=== PATIENT | female | born 1975 | race African-American/Black ===

== ENCOUNTER → 2020-09-06 | Outpatient (CLI) | payer OTHER ==
[~2020-09-06] MED LIST: ACET500T68 PO; ALBU2.5V8 IH; CYCL10TA2 PO; DOXY100T PO; FLUT1DIS IH; GABA600T7 PO; IOHEXOL 180 MG/ML 10 ML VIAL. ONE; PROP10TA PO; botox SUBCUT; methylPREDNISolone ACETATE 40 MG/ML VIAL. ONE; methylPREDNISolone ACETATE 80 MG/ML VIAL. ONE
--- NOTE | 2020-09-06 12:38 | PDOC1 ---
INITIAL PAIN CONSULT DATE OF SERVICE: DOS: DATE: 09/06/20 TIME: 12:31 CHIEF COMPLAINT: Chief Complaint: Low back and bilateral lower extremity pain left greater than right Neck shoulder and bilateral upper extremity pain HISTORY OF PRESENT ILLNESS: 45-year-old female presents history of pain for "many years" in the low back bilateral lower extremities as well as the shoulders upper back and neck and upper extremities. Patient reports no specific injury or accident that she is aware of recently but in 2002 she was carrying some heavy equipment as she was [employer] and fell off a vehicle which caused him significant pain especially in the back and the lower extremities as well as the neck. Patient describes the pain now in the low back and lower extremities is constant sharp stabbing throbbing shooting with tingling and numbness in the legs radiating into the legs and the arms at times as well as a burning quality the back is aching in the back as well. Patient reports it wakes her from sleep several times every night can affect her bowel bladder control but no loss of continence just increased urgency. Patient reports it does affect her ability to walk fairly significantly and is worse with walking and standing better with sitting or laying down again awaken her from sleep frequently. Patient is try gabapentin as well as cyclobenzaprine both of which do decrease the pain but only by about 20 to 30% patient has had previous chiropractic treatment and is still ongoing as these exercises she is doing on her own as well as previous physical therapy trigger point injection as well as epidural injections in the past which helped significantly as well. Did have MRI scan lumbar spine dated February 02, 2020 showing L4-5 broad annular bulging with facet arthropathy and li gamentum flavum buckling causing some narrowing mildly the central canal without crowding of the intrathecal nerve roots neuroforaminal slightly carotid without impingement of the exiting L4 nerve roots. Reports no loss of motor function but significant fatigability especially of the lower extremities with ambulation. PAST MEDICAL HISTORY: PMH: Arthritis, hypertension, dizziness PREVIOUS SURGERIES: Past Surgical Hx: D&C 1996, bladder sling 2013, left hip surgery for bursitis 2012 CURRENT MEDICATIONS: Current Meds: Active Scripts Medications Dose Route/Sig Max Daily Dose Days Date Category Acetaminophen 500 Mg Tablet 1,000 Mg PO PAIN 09/06/20 Reported [botox] SUBCUT 09/06/20 Reported Doxycycline Hyclate 100 Mg Tablet 100 Mg PO DAILY 1/29/21 Reported Advair 100-50 Diskus (Fluticasone/Salmeterol) 1 Each Disk.w.dev 1 Puff IH BID 09/06/20 Reported Proair Hfa Inhaler (Albuterol Sulfate) 8.5 Gm Hfa.aer.ad 2 Puff IH PRN Q4-6HRS PRN 21 09/06/20 Reported Cyclobenzaprine Hcl 10 Mg Tablet 1 Tab PO TID 09/06/20 Reported Gabapentin 600 Mg Tablet 600 Mg PO TID 09/06/20 Reported Propranolol Hcl 10 Mg Tablet 20 Mg PO TID 09/06/20 Reported ALLERGIES; Allergies: Coded Allergies: No Known Drug Allergies (Unverified , 09/06/20) FAMILY HISTORY: Family Hx: Cancer, hypertension, diabetes, heart disease SOCIAL HISTORY: Social Hx: Patient is 1-2 alcoholic drinks a week does not smoke does not use any illegal or recreational drugs, is lives with her spouse has no children lives at home lives locally in [facility]. REVIEW OF SYSTEMS: ROS: Positive for those items mentioned in history of present illness, all systems are reviewed, otherwise negative ,and are complete full and well-documented on patient's chart. PHYSICAL EXAM: VS: Blood pressure is 128/75 pulse 84 respirations 18 temperature 98.4 F height is 5 foot 5 inches weight is 231 pounds PE: PHYSICAL EXAMINATION: GENERAL: The patient is awake, alert, oriented, appropriate, very pleasant demeanor HEENT: Shows normocephalic, atraumatic. Extraocular movements are intact and symmetrical. Oral cavity: Mucous membranes moist and pink. Dentition is intact. NECK: Shows anterior throat supple without palpable lymphadenopathy noted. Swallow reflex symmetrical. CHEST: Shows normal on inspection. Breath sounds are clear bilaterally, no rales rhonchi wheezes auscultated. HEART: Shows S1, S2 clear. No murmurs auscultated. ABDOMEN: Soft, nontender, nondistended, obese. No palpable organomegaly is noted. BACK: Shows spine grossly in the midline. Normal-appearing cervical lordotic curvature. Cervical paraspinous muscles show symmetrical on inspection with palpation some mild tenderness diffusely in the inferior aspect of the cervical paraspinous muscle as well as the superior medial trapezius bilaterally but without radiation without trigger points patient does show good rotation motion cervical spine both laterally greater than 45 degrees as well as extension and forward flexion without decrease in pain. There is slightly increased thoracic kyphosis, some minor flattening of the lumbar lordotic curvature. Lumbar paraspinous muscles show symmetrical on inspection, on palpation shows some moderate tenderness diffusely throughout the upper, middle and lower distribution of the paraspinous muscles bilaterally and also into the lower thoracic paraspinous musculature, firm and tender, but without specific trigger points, without radiation of pain. The patient has good rotational motion of the lumbar spine, both laterally as well as extension and flexion without significant difficulty. No tenderness over the spinous processes, sacrum or sacroiliac regions. EXTREMITIES: Upper extremity deep tendon reflexes are 2+ in the bicep and triceps tendons, motor exam strong with 5 out of 5 second mate strength bicep and tricep flexion and equal. Peripheral pulses are 2+ radial no peripheral edema is noted. Shoulder shrug is strong and intact without loss of strength on resistance as is abduction of the shoulder 90 degrees bilaterally. Lower extremities show deep tendon reflexes 2+ in the patellar and tendo calcaneus tendons. Motor exam is 5 on a scale of 5 with right dorsiflexion, extension, quadriceps and hamstring flexion and 5/5 on the left. Peripheral pulses are 1+ posterior tibial. No peripheral edema is noted bilaterally. Lower extremities are warm and dry to touch, equal in color and appearance. Straight leg raise noted to be negative bilaterally. Gaenslen's and Jak's maneuvers are negative as well. The patient is able to stand, stand on her toes that significant difficulty or loss of balance, walks with a normal-appearing gait does not appear to favor the right or left lower extremity significantly not using any assistive device such as canes or walkers to ambulate. SKIN: Shows warm and dry, good turgor. No edema. No sores, rashes or bruising throughout. IMPRESSION: Impression: 45-year-old female with long history low back bilateral lower extremity pain and neck and bilateral upper extremity pain and radicular fashion both cervical and lumbar. MRI scan lumbar spine and cervical spine as noted Neuritis Hypertension Plan: Options were discussed with the patient including conservative medical management physical therapies interventional techniques. Patient elects interventional techniques. We discussed a lumbar epidural steroid injection using description as well as anatomical models to describe the procedure. Risks were discussed including but not limited to: Bleeding, infection, possibility of epidural hematoma and subsequent neurological compromise, dural puncture, headaches, spinal cord and/or nerve damage, side effects of steroid medication, and poor results regarding pain control. Patient understands and wished to proceed. Patient return to clinic in approximate 2 weeks for follow-up, was counseled as to return appointment, activity level, and side effects to be aware of. Procedure is lumbar epidural steroid injection under local anesthetic using sterile prep and drape at the L4-5 level using C-arm fluoroscopic guidance in both AP and lateral views medications injected is 120 mg Depo-Medrol + 10 mL preservative-free normal saline and 2 mL contrast- condition at discharge is stable patient tolerated procedure well had no complications. YUE BLISS MD Sep 06, 2020 12:38
== END | disposition home or self-care (01) ==
LOC: PNCL 08:13
PROVIDERS: ATTEND Anesthesiology
DX: M54.5 Low back pain (principal); M79.605 Pain in left leg; M79.604 Pain in right leg; M25.512 Pain in left shoulder; M25.511 Pain in right shoulder; M19.90 Unspecified osteoarthritis, unspecified site; I10 Essential (primary) hypertension; Z79.899 Other long term (current) drug therapy; Z98.890 Other specified postprocedural states
CPT/HCPCS: 62323; J1030; J1040; Q9965

== ENCOUNTER → 2020-09-20 | Outpatient (CLI) | payer OTHER ==
[~2020-09-20] MED LIST changes: +BETHANECHOL CHLORIDE; +BUSP30TA PO; +ERGO500027 PO; +FAMO20TA5 PO; +HYDR25TA PO; +LITH300T3 PO; +MONT10TA49 PO; +PRAZ2CAP2 PO; +RIZA10TA PO; +TOPI25TA7 PO; +TRAZ-123 PO; +clindamycin TOP
--- NOTE | 2020-09-20 09:24 | PDOC ---
Progress Note - Pain Clinic Date of Service: DOS: DATE: 09/20/20 TIME: : Diagnosis: Dx: Lumbar radiculopathy with lumbar degenerative disc disease Cervical radiculopathy with cervical degenerative disc disease History or Present Illness: HPI: 45-year-old female returns follow-up status post lumbar epidural steroid injection x1. Patient reports 50% improvement pain in the back and left lower e xtremity patient reports still some pain in the low back and left leg mostly the posterior gluteus posterior lateral bilateral anterior thigh anterior medial thigh but much better patient reports has been increasing activity distance walking doing household activities work activities while traveling with greater ease comfort as well. Patient reports that starting to wear off and the pain is returning in the low back and left leg. Patient also reports pain base the neck and shoulders upper extremities bilaterally right essentially equal to left. Patient reports the pain in the back and legs aching and sharp in the back dull and tight as well as shooting in the leg tingling and burning in the leg and some cramping as well patient reports radiating can be severe with extended activity wakes her from sleep about once every 5-6 hours although initially she was sleeping much better. Patient reports no new motor or sensory deficits no new bowel or bladder incontinence or other complaints. Physical Exam: VS: Blood pressure is 130/80 pulse 80 respirations 16 temperature is 98.5 F height is 5 foot 2 inches weight is 228 pounds PE: PHYSICAL EXAMINATION: GENERAL: The patient is awake, alert, oriented, appropriate, very pleasant demeanor HEENT: Shows normocephalic, atraumatic. Extraocular movements are intact and symmetrical. NECK: Shows anterior throat supple without palpable lymphadenopathy noted. Swallow reflex symmetrical. CHEST: Shows normal on inspection. Breath sounds are clear bilaterally. HEART: Shows S1, S2 clear. No murmurs auscultated. ABDOMEN: Soft, nontender, nondistended, obese. No palpable organomegaly is noted. BACK: Shows spine grossly in the midline. Normal-appearing cervical lordotic curvature. There is slightly increased thoracic kyphosis, some flattening of the lumbar lordotic curvature. Lumbar paraspinous muscles show symmetrical on inspection, on palpation shows some moderate tenderness diffusely throughout the upper, middle and lower distribution of the paraspinous muscles without specific trigger points, without radiation of pain. The patient has good rotational motion of the lumbar spine, both laterally as well as extension and flexion without significant difficulty. No tenderness over the spinous processes, sacrum or sacroiliac regions. EXTREMITIES: Lower extremities show deep tendon reflexes 2+ in the patellar and tendo calcaneus tendons. Motor exam is 5 on a scale of 5 with right dorsiflexion, extension, quadriceps and hamstring flexion and 5/5 on the left. Peripheral pulses are 1+ posterior tibial. No peripheral edema is noted bilaterally. Lower extremities are warm and dry to touch, equal in color and appearance. SKIN: Shows warm and dry, good turgor. No edema. No sores, rashes or bruising throughout. Procedure: Procedure: Options were discussed with the patient. Patient will chart reviews her current medication regimen updated current review of systems updated today as well. We will proceed with a second in the series lumbar epidural steroid injection today with fluoroscopic guidance. Risks were discussed including but not limited to: Bleeding, infection, possibility of epidural hematoma and subsequent neurological compromise, dural puncture, headaches, spinal cord and/or nerve damage, side effects of steroid medication, and poor results regarding pain con trol. Patient understands and wished to proceed. Return to clinic in approximately 2 weeks for follow-up, was counseled as return appointment activity level and side effects to be aware of. Medication Injected: Med Injected: Procedure is lumbar epidural steroid injection under local anesthetic using sterile prep and drape at the L4-5 level using C-arm fluoroscopic guidance in both AP and lateral views medications injected is 120 mg Depo-Medrol + 10 mL preservative-free normal saline and 2 mL contrast- condition at discharge is stable patient tolerated procedure well had no complications. Condition at Discharge: Condition at Discharge: Condition at discharge stable, patient tolerated procedure well and had no complications. YUE BLISS MD Sep 20, 2020 09:24
--- NOTE | 2020-09-20 09:25 | PDOC4 ---
PROCEDURE Procedure Patient was consented for lumbar epidural steroid injection. Risks were dis cussed including but not limited to: Bleeding, infection, possibility of epidural hematoma and subsequent neurological compromise, dural puncture, headaches, spinal cord and/or nerve damage, side effects of steroid medication, and poor results regarding pain control. Patient understands and wished to proceed. Procedure is lumbar epidural steroid injection under local anesthetic using sterile prep and drape at the L4-5 level using C-arm fluoroscopic guidance in both AP and lateral views medications injected is 120 mg Depo-Medrol + 10 mL preservative-free normal saline and 2 mL contrast- condition at discharge is stable patient tolerated procedure well had no complications. YUE BLISS MD Sep 20, 2020 09:25
== END | disposition home or self-care (01) ==
LOC: PNCL 08:34
PROVIDERS: ATTEND Anesthesiology
DX: M51.16 Intervertebral disc disorders with radiculopathy, lumbar region (principal); M50.10 Cervical disc disorder with radiculopathy, unspecified cervical region; Z79.899 Other long term (current) drug therapy
CPT/HCPCS: 62323; J1030; J1040; Q9965

== ENCOUNTER → 2020-10-04 | Outpatient (CLI) | payer OTHER ==
--- NOTE | 2020-10-04 09:06 | PDOC4 ---
PROCEDURE Procedure Patient was consented for cervical epidural steroid injection. Risks were d iscussed including but not limited to: Bleeding, infection, possibility of epidural hematoma and subsequent neurological compromise, dural puncture, headaches, spinal cord and/or nerve damage, side effects of steroid medication, and poor results regarding pain control. Patient understands and wished to proceed. Procedure cervical epidural steroid injection at the C6-7 level, using local anesthetic under sterile prep and drape using C-arm fluoroscopic guidance under local anesthesia medications injected ; 120 mg Depo-Medrol + 5 mL normal saline and 2 mL contrast; condition at discharge is stable patient tolerated procedure well. and had no complications YUE BLISS MD Oct 04, 2020 09:06
--- NOTE | 2020-10-04 09:06 | PDOC ---
Progress Note - Pain Clinic Date of Service: DOS: DATE: 10/04/20 TIME: 09:02 Diagnosis: Dx: Lumbar radiculopathy with lumbar degenerative disc disease Cervical radiculopathy with cervical degenerative disc disease History or Present Illness: HPI: 45-year-old female returns follow-up status post lumbar epidurals injection x2. Patient was about 75% improvement in the low back and left lower extremity pain reports the pain is still significantly decreased even after several weeks following injection. Patient chief complaint today is pain in the base the neck and shoulders as well as upper back. Patient reports essentially equal right and left with radiation to the bilateral biceps into the forearms as well right and left. Patient reports pain is a 9 on scale 10 is worse over the past week 6 on average for its least is a 5 today patient ports aching sharp dull tight shooting in the upper extremities tingling burning stabbing as well as becoming more constant with activity worse with reaching overhead with her hands repetitive motions lifting weights with the upper extremities and driving her car using her upper extremities. Patient reports no loss of motor function but significant fatigability of the upper extremities bilaterally as well as pain in the upper ab back and base of neck. Physical Exam: VS: Blood pressure is 121/83 pulse 77 respirations 16 temperature 98.4 F weight is 226 pounds PE: PHYSICAL EXAMINATION: GENERAL: The patient is awake, alert, oriented, appropriate, very pleasant demeanor HEENT: Shows normocephalic, atraumatic. Extraocular movements are intact and symmetrical. Oral cavity: Mucous membranes moist and pink. NECK: Shows anterior throat supple without palpable lymphadenopathy noted. Swallow reflex symmetrical. CHEST: Shows normal on inspection. Breath sounds are clear bilaterally. HEART: Shows S1, S2 clear. No murmurs auscultated. ABDOMEN: Soft, nontender, nondistended, obese. No palpable organomegaly is noted. BACK: Shows spine grossly in the midline. Normal-appearing cervical lordotic curvature. Cervical paraspinous muscles show symmetrical inspection, on palpa tion some moderate tenderness diffusely in the inferior aspect of the cervical paraspinous posterior bilaterally. Also some mild pain in the bilateral superior medial trapezius without radiation without trigger points or asymmetry. Patient shows full rotation motion cervical spine both laterally as well as extension flexion without significant increase in pain. There is increased thoracic kyphosis, some flattening of the lumbar lordotic curvature. Lumbar paraspinous muscles show symmetrical on inspection, on palpation shows some moderate tenderness diffusely throughout the upper, middle and lower distribution of the paraspinous muscles bilaterally and also into the lower thoracic paraspinous musculature, firm and tender, but without specific trigger points, without radiation of pain. The patient has good rotational motion of the lumbar spine, both laterally as well as extension and flexion without significant difficulty. No tenderness over the spinous processes, sacrum or sacroiliac regions. EXTREMITIES: Lower extremities show deep tendon reflexes 2+ in the patellar and tendo calcaneus tendons. Motor exam is 5 on a scale of 5 with right dorsiflexion, extension, quadriceps and hamstring flexion and 5/5 on the left. Peripheral pulses are 1+ posterior tibial. No peripheral edema is noted bilaterally. Lower extremities are warm and dry to touch, equal in color and appearance. 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 Peripheral pulses are 2+ radial no peripheral edema is noted bilaterally. SKIN: Shows warm and dry, good turgor. No edema. No sores, rashes or bruising throughout. Procedure: Procedure: Options were discussed with the patient. Patient chart reviews her current medication regimen updated current review of systems updated today as well. We will proceed with a cervical epidural steroid injection today with fluoroscopic guidance. Risks were discussed including but not limited to: Bleeding, infection, possibility of epidural hematoma and subsequent neurological compromise, dural puncture, headaches, spinal cord and/or nerve damage, side effects of steroid medication, and poor results regarding pain control. Patient understands and wished to proceed. Patient return to clinic in approximate 2 weeks for follow-up was counseled as to return appointment activity level and side effects to be aware of. Medication Injected: Med Injected: Procedure cervical epidural steroid injection at the C6-7 level, using local anesthetic under sterile prep and drape using C-arm fluoroscopic guidance under local anesthesia medications injected ; 120 mg Depo-Medrol + 5 mL normal saline and 2 mL contrast; condition at discharge is stable patient tolerated procedure well. and had no complications Condition at Discharge: Condition at Discharge: Condition at discharge stable, patient noted the procedure well and had no complications. YUE BLISS MD Oct 04, 2020 09:06
== END | disposition home or self-care (01) ==
LOC: PNCL 08:27
PROVIDERS: ATTEND Anesthesiology
DX: M50.10 Cervical disc disorder with radiculopathy, unspecified cervical region (principal); M51.16 Intervertebral disc disorders with radiculopathy, lumbar region; Z79.899 Other long term (current) drug therapy; Z98.890 Other specified postprocedural states
CPT/HCPCS: 62321; J1030; J1040; Q9965

== ENCOUNTER → 2020-11-19 | Outpatient (CLI) | payer OTHER ==
[~2020-11-19] MED LIST changes: -IOHEXOL 180 MG/ML 10 ML VIAL. ONE; -methylPREDNISolone ACETATE 40 MG/ML VIAL. ONE; -methylPREDNISolone ACETATE 80 MG/ML VIAL. ONE
--- NOTE | 2020-11-19 10:15 | PDOC ---
Progress Note - Pain Clinic Date of Service: DOS: DATE: 11/19/20 TIME: 10:11 Diagnosis: Dx: Lumbar radiculopathy lumbar degenerative disc disease Cervical radiculopathy with cervical degenerative disc disease History or Present Illness: HPI: 45-year-old female returns in follow-up status post lumbar epidural steroid injections x2 and cervical epidural surgery x1. Patient reports that all of these been helpful about 75% but only lasting a few weeks it with her neck is becoming more painful base the neck and shoulders bilaterally right equal to left patient reports also some pain in the low back and lower extremities especially in the right leg but doing better and overall feels like she is done better but the pain returned marginally over the past few weeks patient reports her pain in the neck and shoulders is aching and sharp tight and shooting also tight in the low back with burning pain low back and can be stabbing with activity patient rates pain is a 9 on scale 10 is worse over the past week 7 on average 6 its least is a 7 today. Patient reports no new motor or sensory deficits better with sitting or laying down resting 10 present with her from sleep. Patient reports no new motor or sensory deficits no bowel or bladder incontinence changes. Physical Exam: VS: Pressure is 139/90 pulse 84 respirations 18 temperature 90.2 F 5 x 5 inches weight is 228 pounds PE: PHYSICAL EXAMINATION: GENERAL: The patient is awake, alert, oriented, appropriate, very pleasant demeanor HEENT: Shows normocephalic, atraumatic. Extraocular movements are intact and symmetrical. Oral cavity: Mucous membranes moist and pink. Dentition is intact. NECK: Shows anterior throat supple without palpable lymphadenopathy noted. Swallow reflex symmetrical. CHEST: Shows normal on inspection. Breath sounds are clear bilaterally. HEART: Shows S1, S2 clear. No murmurs auscultated. ABDOMEN: Soft, nontender, nondistended, obese. No palpable organomegaly is noted. No rebound or guarding demonstrated. BACK: Shows spine grossly in the midline. Normal-appearing cervical lordotic curvature. Cervical paraspinous muscles show symmetrical on inspection, on palpation some moderate tenderness diffusely in the inferior aspect the cervical paraspinous posture bilaterally patient shows good rotation motion cervical spine both laterally as well as extension flexion without significant pain. There is slightly increased thoracic kyphosis, some minor flattening of the lumbar lordotic curvature. Lumbar paraspinous muscles show symmetrical on inspection, on palpation shows some moderate tenderness diffusely throughout the upper, middle and lower distribution of the paraspinous muscles, but without specific trigger points, without radiation of pain. The patient has good rotational motion of the lumbar spine, both laterally as well as extension and flexion without significant difficulty. No tenderness over the spinous processes, sacrum or sacroiliac regions. EXTREMITIES: Lower extremities show deep tendon reflexes 2+ in the patellar and tendo calcaneus tendons. Motor exam is 5 on a scale of 5 with right dorsiflexion, extension, quadriceps and hamstring flexion and 5/5 on the left. Peripheral pulses are 1+ posterior tibial. No peripheral edema is noted bilaterally. Lower extremities are warm and dry to touch, equal in color and appearance. Upper extremities show deep tendon reflexes 2+ in the bicep and triceps tendons, motor exam strong with 5 out of 5 product control and logistics analyst strength biceps and triceps flexion bilaterally. Peripheral pulses are 2+ radial. SKIN: Shows warm and dry, good turgor. No edema. No sores, rashes or bruising throughout. Procedure: Procedure: Options were discussed with the patient. Patient chart was reviewed, her current medication regimen updated, and current review of systems updated today as well. We will order physical therapy for both cervical traction lumbar traction myofascial release and flexibility also massage and stretching techniques. Patient will follow up once physical therapy is completed we did discuss possibility of pool therapy in the future if pain is persistent as well. Patient understands agrees and will follow up after physical therapy is completed. Medication Injected: Med Injected: None Condition at Discharge: Condition at Discharge: Condition at discharge is stable. YUE BLISS MD Nov 19, 2020 10:15
== END | disposition home or self-care (01) ==
LOC: PNCL 09:10
PROVIDERS: ATTEND Anesthesiology
DX: M51.16 Intervertebral disc disorders with radiculopathy, lumbar region (principal); M50.10 Cervical disc disorder with radiculopathy, unspecified cervical region; Z79.899 Other long term (current) drug therapy
CPT/HCPCS: 99212; G0463

== ENCOUNTER → 2021-02-03 | Outpatient (CLI) | payer OTHER ==
[~2021-02-03] MED LIST changes: -ERGO500027 PO; +ERGO500089 PO; +IOHEXOL 180 MG/ML 10 ML VIAL. ONE; +methylPREDNISolone ACETATE 40 MG/ML VIAL. ONE; +methylPREDNISolone ACETATE 80 MG/ML VIAL. ONE
--- NOTE | 2021-02-03 14:29 | PDOC ---
Progress Note - Pain Clinic Date of Service: DOS: DATE: 02/03/21 TIME: 14:24 Diagnosis: Dx: Lumbar radiculopathy with lumbar degenerative disc disease Cervical radiculopathy with cervical degenerative disc disease History or Present Illness: HPI: 45-year-old female returns for follow-up status post lumbar epidural steroid injection and cervical epidural steroid injection last seen October 04, 2020. Patient reports did very well with 85% improvement after last injection which was cervical now the pain is increasing her low back and left greater than right lower extremity. Patient reports is worse with walking standing changing positions better with sitting or laying down generally not awaken her from sleep but occasionally wakes her from sleep once every 4-5 hours over the past few weeks. Patient reports no new motor or sensory deficits no new bowel or bladder incontinence patient reports her pain is a 9 on scale 10 is worse over the past week 7 on average 5 its least is a 7 today describes aching and sharp in the low back dull and tight shooting in the lower extremities again left posterior gluteus posterior lateral thigh anterior thigh medial thigh also some on the right but much more noticeable on the left side with walking and standing patient reports radiating can be constant with standing can be severe stabbing in the back tingling and burning in the leg. Patient reports no loss of motor function but significant fatigability of the lower extremities with walking and standing. Physical Exam: VS: Blood pressure 147/74, temperature is 98.2 F, pulse 90 respirations 18 weight 229 pounds PE: PHYSICAL EXAMINATION: GENERAL: The patient is awake, alert, oriented, appropriate, very pleasant in demeanor HEENT: Shows normocephalic, atraumatic. Extraocular movements are intact and symmetrical. Oral cavity: Mucous membranes moist and pink. Dentition is intact. NECK: Shows anterior throat supple without palpable lymphadenopathy noted. Swallow reflex symmetrical. CHEST: Shows normal on inspection. Breath sounds are clear bilaterally. HEART: Shows S1, S2 clear. No murmurs auscultated. ABDOMEN: Soft, nontender, nondistended, obese. BACK: Shows spine grossly in the midline. Normal-appearing cervical lordotic curvature. There is slightly increased thoracic kyphosis, some flattening of the lumbar lordotic curvature. Lumbar paraspinous muscles show symmetrical on inspection, on palpation shows some moderate tenderness diffusely throughout the upper, middle and lower distribution of the paraspinous muscles without specific trigger points, without radiation of pain. The patient has good rotational belinda on of the lumbar spine, both laterally as well as extension and flexion without significant difficulty. No tenderness over the spinous processes, sacrum or sacroiliac regions. EXTREMITIES: Lower extremities show deep tendon reflexes 2+ in the patellar and tendo calcaneus tendons. Motor exam is 5 on a scale of 5 with right dorsiflexion, extension, quadriceps and hamstring flexion and 5/5 on the left. Peripheral pulses are 1+ posterior tibial. No peripheral edema is noted bilaterally. Lower extremities are warm and dry to touch, equal in color and appearance. Upper extremity show deep tendon reflexes 2+ in the bicep tricep tendons, motor exam is strong with transitional care liaison strength rated 5 out of 5 as is bicep and tricep flexion. Peripheral pulses are 2+ radial. SKIN: Shows warm and dry, good turgor. No edema. No sores, rashes or bruising throughout. Procedure: Procedure: Options were discussed with the patient. Patient's old chart was reviewed as her current medication regimen updated current review of systems updated today as well. We will proceed with a first in the series lumbar epidural steroid injection stable fluoroscopic guidance. Risks were discussed including but not limited to: Bleeding, infection, possibility of epidural hematoma and subsequent neurological compromise, dural puncture, headaches, spinal cord and/or nerve damage, side effects of steroid medication, and poor results regarding pain control. Patient understands and wished to proceed. Patient will return to clinic in approximate 2 weeks for follow-up, was counseled as to return appointment activity level and side effects to be aware of. Medication Injected: Med Injected: Procedure is lumbar epidural steroid injection under local anesthetic using sterile prep and drape at the L4-5 level using C-arm fluoroscopic guidance in both AP and lateral views medications injected is 120 mg Depo-Medrol +10mL preservative-free normal saline and 2 mL contrast- condition at discharge is sta ble patient tolerated procedure well had no complications. Condition at Discharge: Condition at Discharge: Condition at discharge stable, patient already procedure well and had no complications. YUE BLISS MD Feb 03, 2021 14:29
--- NOTE | 2021-02-03 14:30 | PDOC4 ---
Procedure Note: Procedure Note: Patient was consented for lumbar epidural steroid injection. Risks were discussed including but not limited to: Bleeding, infection, possibility of epidural hematoma and subsequent neurological compromise, dural puncture, headaches, spinal cord and/or nerve damage, side effects of steroid medication, and poor results regarding pain control. Patient understands and wished to proceed. Procedure is lumbar epidural steroid injection under local anesthetic using sterile prep and drape at the L4-5 level using C-arm fluoroscopic guidance in both AP and lateral views medications injected is 120 mg Depo-Medrol +10mL preservative-free normal saline and 2 mL contrast- condition at discharge is stable patient tolerated procedure well had no complications. YUE BLISS MD Feb 03, 2021 14:30
== END | disposition home or self-care (01) ==
LOC: PNCL 13:10
PROVIDERS: ATTEND Anesthesiology
DX: M51.16 Intervertebral disc disorders with radiculopathy, lumbar region (principal); M50.10 Cervical disc disorder with radiculopathy, unspecified cervical region; Z79.899 Other long term (current) drug therapy
CPT/HCPCS: 62323; J1030; J1040; Q9965

== ENCOUNTER → 2021-07-22 | Outpatient (CLI) | payer OTHER ==
[~2021-07-22] MED LIST changes: +CYCL10TA19 PO; -CYCL10TA2 PO
--- NOTE | 2021-07-22 09:55 | PDOC ---
Progress Note - Pain Clinic Date of Service: DOS: DATE: 07/22/21 TIME: 09:51 Diagnosis: Dx: Lumbar radiculopathy with lumbar degenerative disc disease Cervical radiculopathy with cervical degenerative disc disease History or Present Illness: HPI: 46-year-old female returns last seen 02/03/2021 patient did very well after epidural steroid injection reports pain reduced by about 50% improved for sev eral weeks following the injection patient reports her pain is in the low back bilateral lower extremities somewhat worse on the left than the right but present bilaterally patient reports is with the posterior gluteus lateral thigh anterior thigh medial thighs medial lower leg some pain in the knees as well as the upper back mostly in the low back and legs patient reports a 9 on scale 10 is worse over the past week 6 on average 6 its least is a 6 today patient reports is aching sharp dull tight shooting in the legs and cramping in the back stabbing tingling in the back and tingling in the legs radiating can be constant severe with walking standing changing positions patient reports initially to do much better with doing distance walking doing household activities work activities try with greater ease sleeping better at night patient reports still better at night she does not generally have it awaken her from sleep most nights. Patient reports no bowel or bladder incontinence no loss of motor function but significant fatigability especially of the left lower extremity but of both lower currently. Physical Exam: VS: Blood pressure is 120/78 pulse 83 respirations 18 temperature is 98.6 F height is 5 feet 5 inches weight 226 pounds PE: PHYSICAL EXAMINATION: GENERAL: The patient is awake, alert, oriented, appropriate, very pleasant in demeanor HEENT: Shows normocephalic, atraumatic. Extraocular movements are intact and symmetrical. Oral cavity: Mucous membranes moist and pink. Dentition is intact. NECK: Shows anterior throat supple without palpable lymphadenopathy noted. Swallow reflex symmetrical. CHEST: Shows normal on inspection. Breath sounds are clear bilaterally, distant no rales or rhonchi. HEART: Shows S1, S2 clear. No murmurs auscultated. ABDOMEN: Soft, nontender, nondistended. No palpable organomegaly is noted. BACK: Shows spine grossly in the midline. Normal-appearing cervical lordotic curvature. There is slightly increased thoracic kyphosis, some minor flattening of the lumbar lordotic curvature. Lumbar paraspinous muscles show symmetrical on inspection, on palpation shows some moderate tenderness diffusely throughout the upper, middle and lower distribution of the paraspinous muscles without specific trigger points, without radiation of pain. The patient has good rotational motion of the lumbar spine, both laterally as well as extension and flexion without significant difficulty. EXTREMITIES: Lower extremities show deep tendon reflexes 2+ in the patellar and tendo calcaneus tendons. Motor exam is 5 on a scale of 5 with right dorsiflexion, extension, quadriceps and hamstring flexion and 5/5 on the left. Peripheral pulses are 1+ posterior tibial. No peripheral edema is noted bilaterally. Lower extremities are warm and dry to touch, equal in color and appearance. SKIN: Shows warm and dry, good turgor. No edema. No sores, rashes or bruising throughout. Procedure: Procedure: Options were discussed with the patient. Patient's old chart was reviewed as her current medication regimen updated current review of systems updated today as well. We will proceed with a lumbar epidural steroid injection today with fluoroscopic guidance. Risks were discussed including but not limited to: Bleeding, infection, possibility of epidural hematoma and subsequent neurological compromise, dural puncture, headaches, spinal cord and/or nerve damage, side effects of steroid medication, and poor results regarding pain control. Patient understands and wished to proceed. Patient will return to the clinic in approximate 2 weeks for follow-up, was counseled as return appointment, typical, and side effects beware of. Medication Injected: Med Injected: Procedure is lumbar epidural steroid injection under local anesthetic using sterile prep and drape at the L4-5 level using C-arm fluoroscopic guidance in both AP and lateral views medications injected is 120 mg Depo-Medrol +10mL preservative-free normal saline and 2 mL contrast- condition at discharge is stable patient tolerated procedure well had no complications. Condition at Discharge: Condition at Discharge: Condition at discharge is stable, patient tolerated the procedure well and had no complications. YUE BLISS MD Jul 22, 2021 09:55
--- NOTE | 2021-07-22 09:55 | PDOC4 ---
Procedure Note: ICD 10 Code: ICD 10 Code: M54.16 M51.36 Procedure Note: Patient was consented for lumbar epidural steroid injection with fluoroscopic guidance. Risks were discussed including but not limited to: Bleeding, infection, possibility of epidural hematoma and subsequent neurological compromise, dural puncture, headaches, spinal cord and/or nerve damage, side effects of steroid medication, and poor results regarding pain control. Patient understands and wished to proceed. Procedure is lumbar epidural steroid injection under local anesthetic using sterile prep and drape at the L4-5 level using C-arm fluoroscopic guidance in both AP and lateral views medications injected is 120 mg Depo-Medrol +10mL preservative-free normal saline and 2 mL contrast- condition at discharge is stable patient tolerated procedure well had no complications. YUE BLISS MD Jul 22, 2021 09:55
== END | disposition home or self-care (01) ==
LOC: PNCL 08:53
PROVIDERS: ATTEND Anesthesiology
DX: M51.16 Intervertebral disc disorders with radiculopathy, lumbar region (principal); M50.10 Cervical disc disorder with radiculopathy, unspecified cervical region; Z79.899 Other long term (current) drug therapy
CPT/HCPCS: 62323; J1030; J1040; Q9965

== ENCOUNTER → 2021-08-15 | Outpatient (CLI) | payer OTHER ==
--- NOTE | 2021-08-15 10:13 | PDOC ---
Progress Note - Pain Clinic Date of Service: DOS: DATE: 08/15/21 TIME: 10:08 Diagnosis: Dx: Cervical radiculopathy with cervical degenerative disc disease Lumbar radiculopathy with lumbar degenerative disc disease History or Present Illness: HPI: 46-year-old female returns for follow-up status post lumbar epidural steroid injection x1. Patient reports about 60% improvement overall with low back and left lower extremity pain patient is increase activity greater ease and comfort walking greater distances doing household activities work activities greater ease reports her main complaint today however is pain in the base of the neck and shoulders with radiation to the upper extremities with pain slightly more noticeable on the right side rating to the right upper extremity posterior deltoid biceps triceps and into the forearm some on the left as well but mostly on the right side patient reports this has become much more noticeable after her last visit as her back is feeling better she is having significant pain in the neck and shoulders as well as upper extremities patient reports is an 8 on scale 10 is worse over the past week 6 on average 5 its least and is a 6 today. Patient reports worse with repetitive motions upper extremity specially on the right side reaching overhead with her right or left arm is beginning to disturb sleep to a moderate extent about every 5-6 hours. Patient reports her low back and legs doing much better but now the pain is significantly more noticeable in the shoulders neck and upper extremities again worse on the right patient scribes aching sharp dull in the back and neck shooting in the right upper extremity greater than the left but bilaterally tingling and burning stabbing pain can be radiating constant with activity. Patient reports loss of motor function but significant fatigability of the right arm with repetitive motions and with driving. Physical Exam: VS: Blood pressure is 139/92 pulse 99 respirations are 18 temperature is 98.7 F height is 5 feet 5 inches weight is 221 pounds PE: PHYSICAL EXAMINATION: GENERAL: The patient is awake, alert, oriented, appropriate, very pleasant in demeanor HEENT: Shows normocephalic, atraumatic. Extraocular movements are intact and symmetrical. Oral cavity: Mucous membranes moist and pink. Dentition is intact. NECK: Shows anterior throat supple without palpable lymphadenopathy noted. Swallow reflex symmetrical. CHEST: Shows normal on inspection. Breath sounds are clear bilaterally. HEART: Shows S1, S2 clear. No murmurs auscultated. ABDOMEN: Soft, nontender, nondistended. No palpable organomegaly is noted. BACK: Shows spine grossly in the midline. Normal-appearing cervical lordotic curvature. Cervical paraspinous muscles show symmetrical inspection, on palpation some moderate tenderness diffusely in the inferior aspect the cervical paraspinous muscles are more on the right than left but present bilaterally and also into the superior medial trapezius bilaterally but without trigger points without asymmetry. Patient shows good rotation of motion of the cervical spine both laterally as well as extension flexion without significant limitation. There is slightly increased thoracic kyphosis, some minor flattening of the lumbar lordotic curvature. Lumbar paraspinous muscles show symmetrical on inspection, on palpation shows some moderate tenderness diffusely throughout the upper, middle and lower distribution of the paraspinous muscles, but without specific trigger points, without radiation of pain. The patient has good rotational motion of the lumbar spine, both laterally as well as extension and flexion without significant difficulty. EXTREMITIES: Lower extremities show deep tendon reflexes 2+ in the patellar and tendo calcaneus tendons. Motor exam is 5 on a scale of 5 with right dorsiflexion, extension, quadriceps and hamstring flexion and 5/5 on the left. Peripheral pulses are one+ posterior tibial. No peripheral edema is noted bilaterally. Lower extremities are warm and dry to touch, equal in color and appearance. Upper extremities show deep tendon reflexes 2+ in the bicep tricep tendons, motor exam strong with line service technician strength rated 5 out of 5 as is bicep tricep flexion. Shoulder shrug strong intact without loss of strength on resistance bilaterally. SKIN: Shows warm and dry, good turgor. No edema. No sores, rashes or bruising throughout. Procedure: Procedure: Options were discussed with the patient. Patient's old chart was reviewed as her current medication regimen updated current review of systems updated today as well. We will proceed with a cervical epidural steroid injection today with fluoroscopic guidance. Risks were discussed including but not limited to: Bleeding, infection, possibility of epidural hematoma and subsequent neurological compromise, dural puncture, headaches, spinal cord and/or nerve damage, side effects of steroid medication, and poor results regarding pain control. Patient understands and wished to proceed. Patient will return to clinic in approximately 2 weeks for follow-up, was counseled as to return appointment, activity level, and side effect to be aware of. Medication Injected: Med Injected: Procedure cervical epidural steroid injection at the C6-7 level, using local anesthetic under sterile prep and drape using C-arm fluoroscopic guidance under local anesthesia medications injected ;120 mg Depo-Medrol +5 mL normal saline and 2 mL contrast; condition at discharge is stable patient tolerated procedure well. and had no complications Condition at Discharge: Condition at Discharge: Condition at discharge is stable, patient tolerated the procedure well and had no complications. YUE BLISS MD Aug 15, 2021 10:13
--- NOTE | 2021-08-15 10:14 | PDOC4 ---
Procedure Note: ICD 10 Code: ICD 10 Code: M54.12 M50.30 Procedure Note: Patient was consented for cervical epidural steroid injection with fluoroscopic guidance. Risks were discussed including but not limited to: Bleeding, infection, possibility of epidural hematoma and subsequent neurological compromise, dural puncture, headaches, spinal cord and/or nerve damage, side effects of steroid medication, and poor results regarding pain control. Patient understands and wished to proceed. Procedure cervical epidural steroid injection at the C6-7 level, using local anesthetic under sterile prep and drape using C-arm fluoroscopic guidance under local anesthesia medications injected ;120 mg Depo-Medrol +5 mL normal saline and 2 mL contrast; condition at discharge is stable patient tolerated procedure well. and had no complications YUE LBISS MD Aug 15, 2021 10:14
== END | disposition home or self-care (01) ==
LOC: PNCL 08:53
PROVIDERS: ATTEND Anesthesiology
DX: M50.10 Cervical disc disorder with radiculopathy, unspecified cervical region (principal); M51.16 Intervertebral disc disorders with radiculopathy, lumbar region; Z79.899 Other long term (current) drug therapy
CPT/HCPCS: 62321; J1030; J1040; Q9965

== ENCOUNTER → 2021-10-06 | Outpatient (CLI) | payer OTHER ==
[~2021-10-06] MED LIST changes: +DEXAMETHASONE PRES.FREE 10 MG/ML VIAL. ONE; -methylPREDNISolone ACETATE 40 MG/ML VIAL. ONE; -methylPREDNISolone ACETATE 80 MG/ML VIAL. ONE
--- NOTE | 2021-10-06 16:16 | PDOC ---
Progress Note - Pain Clinic Date of Service: DOS: DATE: 10/06/21 TIME: 16:12 Diagnosis: Dx: Lumbar radiculopathy with lumbar degenerative disc disease Cervical radiculopathy with cervical degenerative disc disease History or Present Illness: HPI: 46-year-old female returns in follow-up status post cervical epidural steroid injection x2 last seen August 15, 2021. Patient reports she did very well with the pain improved by about 70% for about 6 weeks patient reports that point. Patient reports no bowel or bladder incontinence. Patient's chief complaint now however is low back pain with pain in the low back and bilateral lower extremity slightly worse on the left than the right but present bilaterally worse with walking standing change positions patient reports this is her chief complaint has been waking her from sleep but every 3-5 hours rated as 8 on scale 10 is worse over the past week 6 on average 5 its least is a 5 today patient reports aching dull tight alternating shooting in the legs posterior gluteus posterior lateral thigh lateral anterior thigh anterior medial thighs into the lower legs also in the calves patient reports radiating constant with activity walking standing can be cramping stabbing better with sitting or laying down but her upper back neck and shoulder is doing much better she was able to do work activities better with distance walking doing household activities as well as driving with greater ease and comfort now for the low back and bilateral lower extremities Physical Exam: VS: Blood pressure is 111/39 pulse 52 respirations 18 temperature 97.8 F height is 5 foot 5 inches weight is 227 pounds. PE: PHYSICAL EXAMINATION: GENERAL: The patient is awake, alert, oriented, appropriate, very pleasant in demeanor HEENT: Shows normocephalic, atraumatic. Extraocular movements are intact and symmetrical. Oral cavity: Mucous membranes moist and pink. Dentition is intact. NECK: Shows anterior throat supple without palpable lymphadenopathy noted. Swallow reflex symmetrical. CHEST: Shows normal on inspection. Breath sounds are clear bilaterally, no rales rhonchi or wheezes auscultated. HEART: Shows S1, S2 clear. No murmurs auscultated. ABDOMEN: Soft, nontender, nondistended. No palpable organomegaly is noted. BACK: Shows spine grossly in the midline. Normal-appearing cervical lordotic curvature. Cervical paraspinous muscles show symmetrical inspection, but patient some moderate tenderness diffusely bilaterally more diffusely without significant radiation. Patient shows good rotation of motion cervical spine with lateral as well as full extension full forward flexion with only minimal pain with extension only. There is slightly increased thoracic kyphosis, some minor flattening of the lumbar lordotic curvature. Lumbar paraspinous muscles show symmetrical on inspection, on palpation shows some moderate tenderness diffusely throughout the upper, middle and lower distribution of the paraspinous muscles, but without specific trigger points, without radiation of pain. The patient has good rotational motion of the lumbar spine, both laterally as well as extension and flexion without significant difficulty. No tenderness over the spinous processes, sacrum or sacroiliac regions. EXTREMITIES: Lower extremities show deep tendon reflexes 2+ in the patellar and tendo calcaneus tendons. Motor exam is 5 on a scale of 5 with right dorsiflexion, extension, quadriceps and hamstring flexion and 4/5 on the left. Peripheral pulses are 1+ posterior tibial. No peripheral edema is noted bilaterally. Lower extremities are warm and dry to touch, equal in color and appearance. Upper extremity show deep tendon reflexes 2+ in the bicep and tricep tendons, motor exam is strong with shopper's aide strength rated 5 out of 5 as is bicep and tricep flexion bilaterally. SKIN: Shows warm and dry, good turgor. No edema. No sores, rashes or bruising throughout. Procedure: Procedure: Options were discussed with the patient. Patient's old chart was reviewed as her current medication regimen updated current review of systems updated today as well. We will proceed with a lumbar epidural steroid injection today with fluoroscopic guidance. Risks were discussed including but not limited to: Bleeding, infection, possibility of epidural hematoma and subsequent neurological compromise, dural puncture, headaches, spinal cord and/or nerve damage, side effects of steroid medication, and poor results regarding pain control. Patient understands and wished to proceed. Patient will return to the clinic in approximate 2 weeks for follow-up, was counseled as to return appointment, activity level, and side effect to be aware of. Medication Injected: Med Injected: Procedure is lumbar epidural steroid injection under local anesthetic using sterile prep and drape at the L4-5 level using C-arm fluoroscopic guidance in both AP and lateral views medications injected is 20 mg dexamethasone +10mL preservative-free normal saline and 2 mL contrast- condition at discharge is stable patient tolerated procedure well had no complications. Condition at Discharge: Condition at Discharge: Condition at discharge stable, paced tolerated procedure well and had no complications. YUE BLISS MD Oct 06, 2021 16:16
--- NOTE | 2021-10-06 16:17 | PDOC4 ---
Procedure Note: ICD 10 Code: ICD 10 Code: M54.16 M51.36 Procedure Note: Patient was consented for lumbar epidural steroid injection with fluoroscopic guidance. Risks were discussed including but not limited to: Bleeding, infection, possibility of epidural hematoma and subsequent neurological compromise, dural puncture, headaches, spinal cord and/or nerve damage, side effects of steroid medication, and poor results regarding pain control. Patient understands and wished to proceed. Procedure is lumbar epidural steroid injection under local anesthetic using sterile prep and drape at the L4-5 level using C-arm fluoroscopic guidance in both AP and lateral views medications injected is 20 mg dexamethasone +10mL preservative-free normal saline and 2 mL contrast- condition at discharge is stable patient tolerated procedure well had no complications. YUE BLISS MD Oct 06, 2021 16:17
== END | disposition home or self-care (01) ==
LOC: PNCL 15:41
PROVIDERS: ATTEND Anesthesiology
DX: M51.16 Intervertebral disc disorders with radiculopathy, lumbar region (principal); M50.10 Cervical disc disorder with radiculopathy, unspecified cervical region; Z79.899 Other long term (current) drug therapy
CPT/HCPCS: 62323; J1100; Q9965

== ENCOUNTER → 2021-10-27 | Outpatient (CLI) | payer OTHER ==
--- NOTE | 2021-10-27 15:55 | PDOC ---
Progress Note - Pain Clinic Date of Service: DOS: DATE: 10/27/21 TIME: 15:45 Diagnosis: Dx: Cervical radiculopathy with cervical degenerative disc disease Lumbar radiculopathy with lumbar degenerative disc disease History or Present Illness: HPI: 46-year-old female returns for follow-up status post lumbar epidural steroid injection x1. Patient reports did very well about 50% improvement in the low back and lower extremities patient reports her chief complaint today however is neck and bilateral upper extremity pain somewhat worse on the left than the right but present bilaterally. Patient reports is worse with repetitive motions of upper extremities reaching overhead with her left arm sleeping on her left side driving a car repetitive motions and lifting weights with the left arm as well as reaching forward with weightbearing maneuvers. Patient reports no loss of motor function but significant fatigability of the left arm with the reaching and repetitive motions. Patient reports even driving the car with her left hand on the steering wheel can exacerbate the pain fairly significantly. Patient reports it awakens her from sleep about every 6-8 hours does not have any overt motor loss but significant fatigue in the left arm. Patient describes as aching and dull tight in the neck and shoulders shooting in the left arm some on the mid back as well as the left shoulder cramping and burning stabbing in the base of the neck as well as radiating can be constant and severe in the left arm as well. Physical Exam: VS: Blood pressure is 137/79 pulse 99 respirations 18 temperature 98.1 F height is 5 feet 5 inches weight is 230 pounds. PE: PHYSICAL EXAMINATION: GENERAL: The patient is awake, alert, oriented, appropriate, very pleasant in demeanor HEENT: Shows normocephalic, atraumatic. Extraocular movements are intact and symmetrical. Oral cavity: Mucous membranes moist and pink. Dentition is intact. NECK: Shows anterior throat supple without palpable lymphadenopathy noted. Sw allow reflex symmetrical. CHEST: Shows normal on inspection. Breath sounds are clear bilaterally. HEART: Shows S1, S2 clear. No murmurs auscultated. ABDOMEN: Soft, nontender, nondistended. No palpable organomegaly is noted. BACK: Shows spine grossly in the midline. Normal-appearing cervical lordotic curvature. Cervical paraspinous muscles show symmetrical inspection, on palp ation some moderate tenderness diffusely bilaterally without significant radiation. Shows good rotation motion cervical spine both laterally as well as extension flexion with some moderate tenderness with left lateral rotation past 45 degrees only but without radiation. There is slightly increased thoracic kyphosis, some mild flattening of the lumbar lordotic curvature. Lumbar p araspinous muscles show symmetrical on inspection, on palpation shows some moderate tenderness diffusely throughout the upper, middle and lower distribution of the paraspinous muscles without specific trigger points, without radiation of pain. The patient has good rotational motion of the lumbar spine, both laterally as well as extension and flexion without significant difficulty. No tenderness over the spinous processes, sacrum or sacroiliac regions. EXTREMITIES: Lower extremities show deep tendon reflexes 2+ in the patellar and tendo calcaneus tendons. Motor exam is 5 on a scale of 5 with right dorsiflexion, extension, quadriceps and hamstring flexion and 4/5 on the left. Peripheral pulses are 1+ posterior tibial. No peripheral edema is noted bilaterally. Lower extremities are warm and dry to touch, equal in color and appearance. Upper extremities radicular reflexes 2+ in the bicep tricep tendons, motor exam strong with 5 out of 5 ground source heat pump technician strength bicep and tricep flexion and equal. SKIN: Shows warm and dry, good turgor. No edema. No sores, rashes or bruising throughout. Procedure: Procedure: Options were discussed with the patient. Patient's old chart was reviewed as her current medication regimen updated current review of systems updated today as well. We will proceed with a cervical epidural steroid injection today with fluoroscopic guidance. Risks were discussed including but not limited to: Bleeding, infection, possibility of epidural hematoma and subsequent neur ological compromise, dural puncture, headaches, spinal cord and/or nerve damage, side effects of steroid medication, and poor results regarding pain control. Patient understands and wished to proceed. Patient will return to clinic in approximately 4 weeks for follow-up, was counseled as to return appointment, activity level, and side effect to be aware of. Medication Injected: Med Injected: Procedure cervical epidural steroid injection at the C6-7 level, using local anesthetic under sterile prep and drape using C-arm fluoroscopic guidance under local anesthesia medications injected ; 20 mg dexamethasone +5 mL normal saline and 2 mL contrast; condition at discharge is stable patient tolerated procedure well. and had no complications Condition at Discharge: Condition at Discharge: Condition at discharge is stable, patient tolerated the procedure well and had no complications. YUE BLISS MD Oct 27, 2021 15:55
--- NOTE | 2021-10-27 15:56 | PDOC4 ---
Procedure Note: ICD 10 Code: ICD 10 Code: M54.12 M50.30 Procedure Note: Patient was consented for cervical epidural steroid injection with fluoroscopic guidance. Risks were discussed including but not limited to: Bleeding, infection, possibility of epidural hematoma and subsequent neurological compromise, dural puncture, headaches, spinal cord and/or nerve damage, side effects of steroid medication, and poor results regarding pain control. Patient understands and wished to proceed. Procedure cervical epidural steroid injection at the C6-7 level, using local anesthetic under sterile prep and drape using C-arm fluoroscopic guidance under local anesthesia medications injected ; 20 mg dexamethasone +5 mL normal saline and 2 mL contrast; condition at discharge is stable patient tolerated procedure well. and had no complications YUE BLISS MD Oct 27, 2021 15:56
== END | disposition home or self-care (01) ==
LOC: PNCL 14:39
PROVIDERS: ATTEND Anesthesiology
DX: M54.12 Radiculopathy, cervical region (principal); M50.30 Other cervical disc degeneration, unspecified cervical region; M51.16 Intervertebral disc disorders with radiculopathy, lumbar region; Z79.899 Other long term (current) drug therapy
CPT/HCPCS: 62321; J1100; Q9965